=== PATIENT | male | born 1995 | race African-American/Black ===

== ENCOUNTER 2018-11-22 10:22 | Emergency (ER) | payer OTHER ==
[~2018-11-22] VITALS: Ht 175.3 cm; Wt 68.0 kg
[2018-11-22] MEDS ORDERED: CYCLOBENZAPRINE5 MG PO (11:56)
[2018-11-22] MEDS ORDERED: MOBIC7.5 MG PO (11:56)
[2018-11-22 12:01] VITALS: BP 120/75
== END 2018-11-22 12:01 | disposition home or self-care (01) ==
LOC: ER 10:22
DX: M25.562 Pain in left knee (principal); M25.512 Pain in left shoulder; M54.9 Dorsalgia, unspecified; J45.909 Unspecified asthma, uncomplicated; V89.2XXA Person injured in unspecified motor-vehicle accident, traffic, initial encounter; Y92.89 Other specified places as the place of occurrence of the external cause; Y93.89 Activity, other specified; Y99.8 Other external cause status